=== PATIENT | female | born 1990 | race Caucasian/White ===

== ENCOUNTER 2017-08-28 17:30 | Emergency (ER) | payer OTHER ==
[~2017-08-28] VITALS: Ht 157.5 cm; Wt 81.8 kg
[~2017-08-28 17:30] MED LIST: NOCURR
[2017-08-28] MEDS ORDERED: ACETAMINOPHEN 500 MG TABLET PO ONE (17:45)
[2017-08-28] MEDS ORDERED: ONDANSETRON HCL 4 MG/2 ML VIAL IVP ONE (18:15)
[2017-08-28] MEDS ORDERED: SODIUM CHLORIDE 0.9% 1,000 ML IV ONE ×2 (18:15→20:30)
[2017-08-28] MEDS ORDERED: IBUPROFEN 800 MG TABLET PO ONE (20:30)
[2017-08-28 20:40] VITALS: BP 107/65
== END 2017-08-28 21:10 | disposition home or self-care (01) ==
LOC: EMS 17:31
DX: R11.2 Nausea with vomiting, unspecified (principal); M79.1 Myalgia
CPT/HCPCS: 96361; 96374; 99285; J2405; J7030

== ENCOUNTER 2018-11-13 12:57 | Emergency (ER) | payer OTHER ==
[~2018-11-13] VITALS: Ht 160 cm; Wt 72.7 kg
[2018-11-13 13:00] VITALS: BP 115/66
[2018-11-13] MEDS ORDERED: IBUPROFEN 800 MG TABLET PO ONE (13:15)
== END 2018-11-13 14:35 | disposition home or self-care (01) ==
LOC: EMS 12:58
DX: S60.221A Contusion of right hand, initial encounter (principal); W26.8XXA Contact with other sharp object(s), not elsewhere classified, initial encounter; Y93.89 Activity, other specified; Y92.89 Other specified places as the place of occurrence of the external cause; Y99.8 Other external cause status